=== PATIENT | male | born 1990 ===

== ENCOUNTER 2020-06-11 04:02 | Emergency (ER) | payer SELFPAY ==
[2020-06-11] VITALS (14 sets, daily range): BP systolic 110–143; BP diastolic 64–99; PULSE 66–118; RESP 13–22; TEMP 36.8–39.4; O2SAT 98–100
--- NOTE | ~2020-06-11 | CT_ITS ---
EXAMINATION: CT brain wo con INDICATION: Altered mental status, polysubstance intoxication COMPARISON: None TECHNIQUE: Standard unenhanced head CT. The dose-length product (DLP) was 605.33 mGy-cm. The mA was a djusted according to patient size. Iterative reconstruction technique was employed. FINDINGS: There is no intracranial hemorrhage, acute infarction, or abnormal mass lesion. The ventric les are normal. There is no abnormal mass effect or midline shift. The cortes-white matter differentiat ion is normal. The basal cisterns are patent. The orbits are normal. The paranasal sinuses, mastoids and calvarium are normal. IMPRESSION: 1. No acute intracranial abnormality. Reviewed, dictated and finalized at location A. 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
--- NOTE | ~2020-06-11 | XR_ITS ---
EXAMINATION: XR chest 1V portable INDICATION: Fever TECHNIQUE: Portable AP chest at 0640 hours COMPARISON: None available FINDINGS: The lungs are free of acute opacities. There is no pleural effusion or pneumothorax. The ca rdiomediastinal silhouette is normal. The visualized bones and soft tissues are unremarkable. IMPRESSION: 1. No acute cardiopulmonary abnormality. Reviewed, dictated and finalized at location A. 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
--- NOTE | 2020-06-11 04:27 | ECG_ITS ---
Measurements Intervals [place] Rate: 95 P: 72 NH: 140 QRS: 85 QRSD: 90 T: 59 QT: 338 QTc: 426 Interpretive Statements SINUS RHYTHM ST ELEVATION IN DIFFUSE LEADS- CONSIDER PERICARDITIS OR EARLY REPOLARIZATION BASELINE ARTIFACT- I, II, III, V2 ABNORMAL ECG Electronically Signed On 06-11-2020 8:34:08 COMPTOMETER OPERATOR by Santiago Vann D.O.
[2020-06-11 04:58] LABS: Basophils Absolute Auto 0.1 K/mm3 (0.0-0.1); Basophils Percent Auto 1.1 % (0.2-1.2); Eosinophils Percent Auto 0.3 % (0-4.4); Hematocrit 44.6 % (42.0-52.0); Hemoglobin 15.5 g/dL (14.0-18.0); Immature Granulocyte Absolute 0.02 K/mm3 (0.00-0.031); Immature Granulocyte Percent A 0.3 % (0-0.5); Lymphocytes Absolute Auto 0.94 K/mm3 (0.9-3.2); Lymphocytes Percent Auto 14.5 % (18.3-44.2); Mean Corpuscular HGB Conc 34.8 g/dl (32-36); Mean Corpuscular Hemoglobin 30.3 pg (26-34); Mean Corpuscular Volume 87.1 fl (80-100); Mean Platelet Volume 9.8 fl (7.4-10.4); Monocytes Absolute Auto 0.4 K/mm3 (0.1-0.6); Monocytes Percent Auto 5.4 % (2.6-8.5); Neutrophils Absolute Auto 5.1 K/mm3 (1.3-6.7); Neutrophils Percent Auto 78.4 % (45.5-73.1); Platelet Count Result 242 k/mm3 (150-375); Red Blood Count 5.12 M/mm3 (4.6-6.20); Red Cell Distribution Width 12.2 % (11.5-14.5); White Blood Count 6.5 K/mm3 (4.5-10.0)
[2020-06-11 05:00] LABS: Glucose Point of Care 99 (65-105)
[2020-06-11] MEDS: SODIUM CHLORIDE 0.9% IV 1,000 ML 999 ML IV CONT (05:03)
[2020-06-11 05:16] LABS: Lactic Acid Reflex 2.6 mmol/L (0.7-2.1); Prothrombin Time 13.8 Seconds (11.1-14.7)
[2020-06-11 05:17] LABS: Add Urine Microscopic? NO; Appearance Urine Clear (Clear); Bilirubin Urine Negative (Negative); Blood Urine Negative (Negative); Color Urine Straw (Yellow); Glucose Urine UA Negative (Negative); Ketones Urine Negative (Negative); Leukocyte Esterase Ur Negative LEU/UL (Negative); Nitrate Urine Negative (Negative); Protein Urine Negative (Negative); Specific Grav Ur 1.005 (1.001-1.035); Urobilinogen Urine Negative mg/dL (<2.0)
[2020-06-11 05:17] LABS: Alanine Aminotransferase 22 U/L (4-50); Albumin Level 4.9 g/dL (3.5-5.1); Alkaline Phosphatase 55 U/L (38-126); Anion Gap 8 mmol/L (8-16); Aspartate Amino Transferase 28 U/L (17-59); Bilirubin,Total 1.2 mg/dL (0.2-1.3); Blood Urea Nitrogen 8 mg/dL (9-20); Calcium 9.2 mg/dL (8.4-10.2); Carbon Dioxide 29 mmol/L (22-30); Chloride 103 mmol/L (98-107); Creatine Kinase 107 U/L (55-170); Estimated CRCL calculation 111 ml/min; Estimated Glomerular Filt Rate > 60; Glucose 104 mg/dL (75-110); Potassium 3.3 mmol/L (3.4-5.0); Sodium 140 mmol/L (137-145)
[2020-06-11 05:18] LABS: Amphetamine Screen Urine Negative (Negative); Barbiturate Screen Urine Negative (Negative); Benzodiazepines Screen Urine Negative (Negative); Cannabinoid Screen Urine Positive (Negative); Cocaine Screen Urine Negative (Negative); Methadone Screen Urine Negative (Negative); Opiate Screen Urine Negative (Negative); Phencyclidine Screen Urine Negative (Negative)
[2020-06-11 05:22] LABS: Acetaminophen < 10 ug/mL (10-30); Ethanol < 10 mg/dL (<10); Salicylate < 1.0 mg/dL (2-20)
--- NOTE | 2020-06-11 05:53 | PC.NURSE ---
pt ambulated to bathroom and back with even and steady gait.
--- NOTE | 2020-06-11 05:58 | ED.AMS ---
HPI - Altered Mental Status General Chief Complaint: Altered Mental Status Stated Complaint: unresponsive Time Seen by Provider: 06/11/20 04:06 Source: patient and EMS Mode of arrival: EMS History of Present Illness HPI narrative: This patient is a 29 year old male who presents for evaluation of altered mental status. EMS reports they were called to evaluate him for unresponsiveness. Once they arrived, it was found that patient was not unresponsive but he would not open his door. He was just sitting in his car in a gas station parking lot. Patient admits to smoking marijuana tonight but he denies other drug use. On arrival to ER, patient sitting in bed covering his face. Once we turned off the light he opened his eye and he was able to have a conversation. He states he was following an [employer] truck from [place] because I thought it was god . Related Data Home Medications Medication Instructions Recorded Confirmed No Home Medications 06/11/20 06/11/20 Allergies Allergy/AdvReac Type Severity Reaction Status Date / Time No Known Allergies Allergy Verified 06/11/20 05:14 Review of Systems Review of Systems: All systems reviewed & are unremarkable except as noted in HPI and below Constitutional: Constitutional: Denies chills and Denies fever(s) ENT: Denies nasal congestion and Denies sore throat Cardiovascular: Cardiovascular: Denies chest pain Respiratory: Respiratory: Denies cough and Denies dyspnea Gastrointestinal: Gastrointestinal: Denies abdominal pain, Denies nausea and Denies vomiting Neurologic: Denies headache(s) and Denies numbness PMFSH Past Medical History Medical History (Updated 06/11/20 @ 07:50 by Elizabeth Mirza MD) Patient denies medical problems Surgical History Surgical History (Updated 06/11/20 @ 06:05 by Elizabeth Mirza MD) No pertinent past surgical history Social History Social History (Updated 06/11/20 @ 06:05 by Elizabeth Mirza MD) Smoking status: Never smoker Alcohol intake: never Substance use: current Substance use type: marijuana Exam Const: General: no acute distress and alert Orientation/consciousness: patient oriented x3 Eyes: EOM: EOMs intact bilaterally Chest: Chest palpation & inspection: normal inspection of the chest Resp: Effort & Inspection: normal respiratory effort and no retractions Auscultation: clear to auscultation bilaterally Cardio: Rate: regular rate Rhythm: regular rhythm Heart sounds: no murmurs GI: GI Palp: Yes Soft to palpation, No Tenderness to palpation present (GI), No Guarding due to palpation present (GI) and No Rigid due to palpation Auscultation: normal bowel sounds Neuro: General: patient oriented x3 and moves all extremities Psych: Appearance: grossly normal Mental Status: mental status grossly normal Affect: normal affect Thought content: No Suicidality present, No Homicidality present and Yes delusions Course Reevaluation(s) Reevaluation #1: PAtient is now lucid and oriented x 4. He states he was paranoid earlier due to smoking marijuana. He denies any complaints. He has bruising to bilateral hands but he declines xrays. no infection found Date: 06/11/20 Time: 07:23 Vital Signs Vital signs: Vital Signs Temperature 102.9 F H 06/11/20 04:00 Pulse Rate 118 H 06/11/20 04:00 Respiratory Rate 22 H 06/11/20 04:00 Blood Pressure 143/99 H 06/11/20 04:00 Pulse Oximetry 98 06/11/20 04:00 Temperature 98.2 F 06/11/20 05:45 Pulse Rate 66 06/11/20 08:25 Respiratory Rate 16 06/11/20 08:25 Blood Pressure 139/64 06/11/20 08:25 Pulse Oximetry 98 06/11/20 08:25 MDM - Altered Mental Status Lab Data Attestation: I reviewed the patient's lab results. Result diagrams: 06/11/20 04:47 06/11/20 04:47 Labs: Lab Results 06/11/20 06/11/20 06/11/20 Range/Units 04:47 04:47 04:47 WBC 6.5 (4.5-10.0) K/mm3 RBC 5.12 (4.6-6.20) M
--- NOTE | 2020-06-11 06:39 | PC.NURSE ---
This nurse called patient's father at the provided phone number of [phone]. There was no answer, unable to leave a message. Will call again shortly.
--- NOTE | 2020-06-11 07:06 | PC.NURSE ---
This nurse contacted patient's father and informed him of patient's status and that his son is here and will need to be picked up.
--- NOTE | 2020-06-11 07:30 | PC.NURSE ---
ASSUMED PT CARE AT THIS TIME, PT CALLING FATHER FOR RIDE, ALERT AND ORIENTED, PER OSMANI BONNER AT BEDSIDE WE ARE AWAITING FATHER TO ARRIVE TO GIVE PT A RIDE HOME.
--- NOTE | 2020-06-11 07:44 | PC.NURSE ---
PT STATES HIS FATHER IS COMING TO GET HIM, AWAITING HIS ARRIVAL.
[2020-06-11 07:57] LABS: Reflex Lactic Acid Yes or No Add Lactic
[2020-06-11 09:04] LABS: Lactic Acid 1.5 mmol/L (0.7-2.1)
== END 2020-06-11 08:25 | disposition home or self-care (01) ==
PROVIDERS: Emergency Provider General Practice
DX: R41.82 Altered mental status, unspecified (principal); F12.929 Cannabis use, unspecified with intoxication, unspecified; R94.31 Abnormal electrocardiogram [ECG] [EKG]
CPT/HCPCS: 36415; 70450; 71045; 80053; 80307; 81003; 82550; 82948; 83605; 84443; 85025; 85610; 85730; 93005; 96361; 96374; 99284; A9270; J0131; J7030